=== PATIENT | male | born 1990 | race Two or more races ===

== ENCOUNTER 2016-05-10 12:40 | Emergency (ER) | payer OTHER ==
[~2016-05-10] VITALS: Ht 185.4 cm; Wt 108.9 kg
[~2016-05-10 12:40] MED LIST: CEPHALEXIN500 MG ORAL; IBUPROFEN600 MG ORAL; NORCO 5-325 TA1 EACH ORAL
[2016-05-10] MEDS ORDERED: IBUPROFEN600 MG ORAL (13:42)
[2016-05-10] MEDS ORDERED: AMOXICILLIN500 MG ORAL (13:42)
[2016-05-10 13:47] VITALS: BP 101/77
[2016-05-10 13:49] VITALS: BP 101/77
--- NOTE | 2016-05-10 16:35 | Emergency Room Report ---
History of Present Illness General Chief Complaint: Flu Like Symptoms Source: Patient Present Illness HPI The patient is a 25-year-old male presenting for sore throat and subjective fever for the past 2 days. The patient denies sick contacts or recent travel. The pain is described as a 5/10 sharp sensation it is worse with swallowing. The patient denies any other symptoms including hemoptysis, shortness of breath , chest pain, rash, neck pain or stiffness Allergies: Coded Allergies: No Known Allergies (Unverified , 01/07/16) Patient History Past Medical History: see triage record Pertinent Family History: none Reviewed Nursing Documentation: PMH: Agreed, PSxH: Agreed Nursing Documentation-PMH Past Medical History: No Stated History Review of Systems All Other Systems: negative except mentioned in HPI Physical Exam Vital Signs Date Time Temp Pulse Resp B/P Pulse Ox O2 Delivery O2 Flow Rate FiO2 05/10/16 13:00 98.6 67 20 101/77 100 Room Air Sp02 EP Interpretation: reviewed, normal General Appearance: no apparent distress, alert, GCS 15, non-toxic Head: normocephalic, atraumatic Eyes: bilateral eye PERRL, bilateral eye normal inspection ENT: hearing grossly normal, no angioedema, normal voice, uvula midline, moist mucus membranes, tonsillar swelling, pharyngeal erythema, tonsillar exudate Neck: full range of motion, supple/symm/no masses Respiratory: chest non-tender, lungs clear, normal breath sounds, no wheezing, speaking full sentences Cardiovascular #1: regular rate, rhythm, no edema Musculoskeletal: back normal, gait/station normal, normal range of motion, non- tender Neurologic: alert, oriented x3, responsive, motor strength/tone normal, sensory intact, normal gait, speech normal Psychiatric: judgement/insight normal, memory normal, mood/affect normal, no suicidal/homicidal ideation Skin: normal color, no rash, warm/dry, well hydrated Medical Decision Making PA Attestation Dr. Vila is my supervising physician. Patient management was discussed with my supervising physician Diagnostic Impression: Primary Impression: Pharyngitis, acute ER Course The patient is a 25-year-old male presenting for sore throat and subjective fever for the past 2 days. Differential diagnosis include but not limited to pharyngitis, sinusitis, AOM, bronchitis, PNA Physical exam: Vitals within normal limits. Afebrile. HEENT: There is bilateral tonsillar edema, erythema, with white exudate. Uvula midline. Otherwise exam unremarkable Lungs clear to auscultation bilaterally The patient will be discharged home with prescription for amoxicillin and will follow up with primary care physician. ER precautions are given Last Vital Signs Date Time Temp Pulse Resp B/P Pulse Ox O2 Delivery O2 Flow Rate FiO2 05/10/16 13:49 98.6 67 20 101/77 100 Room Air Status: improved Disposition: HOME, SELF-CARE Condition: Improved Scripts Ibuprofen* (MOTRIN*) 600 Mg Tablet 600 MG ORAL Q8H Y for For Pain, #30 TAB 0 Refills Prov: LESLIE YU 05/10/16 Amoxicillin* (AMOXIL*) 500 Mg Capsule 500 MG ORAL BID, #20 CAP Prov: LESLIE YU 05/10/16 Patient Instructions: Pharyngitis Additional Instructions: I discussed my findings with the patient. All questions and concerns have been answered. Treatment and medication compliance have been addressed. I advised the patient that they need to follow up with PMD in 3-5 days. Return to ED if pain remains or worsens, cough worsens or remains, you notice blood in your sputum, you notice wheezing, you experience a fever, or if needed for any reason. Patient verbalized understanding of discharge instructions. LESLIE YU May 10, 2016 16:35
== END 2016-05-10 13:50 | disposition home or self-care (01) ==
LOC: EMR 13:12
DX: J02.9 Acute pharyngitis, unspecified (principal)
CPT/HCPCS: 99282

== ENCOUNTER 2019-03-21 07:49 | Emergency (ER) | payer MEDICAID, OTHER ==
[~2019-03-21] VITALS: Ht 182.9 cm; Wt 108.9 kg
[~2019-03-21 07:49] MED LIST changes: +AMOXICILLIN500 MG ORAL
[2019-03-21 08:05] VITALS: BP 143/93
--- NOTE | 2019-03-21 08:11 | Emergency Room Report ---
History of Present Illness General Chief Complaint: Abdominal Pain Source: Patient Present Illness HPI Disclaimer: Please note that this report is being documented using [employer] technology. This can lead to erroneous entry secondary to incorrect interpretation by the dictating instrument. HPI: 28-year-old otherwise healthy male presents for evaluation of vomiting and diarrhea. Symptoms began early this morning. He was up late last night eating tacos approximately 2 AM and awoke this morning 6 AM with 4-5 episodes of nonbloody and nonbilious emesis and 2 episodes of profusely watery diarrhea. Denies melena or hematochezia. Denies abdominal pain when not retching. Denies any chest pain, shortness of breath, fever, chills. Does not know whether or not anyone else is sick that was out with him last night. Otherwise no known sick contacts. Takes no medications had no history of abdominal surgeries. PMH: Denies PSH: Denies Allergies: Denies Social Hx: Denies drug, alcohol or tobacco use Allergies: Coded Allergies: No Known Allergies (Unverified , 01/07/16) Nursing Documentation-PMH Past Medical History: No Stated History Review of Systems All Other Systems: negative except mentioned in HPI Physical Exam Vital Signs Date Time Temp Pulse Resp B/P (MAP) Pulse Ox O2 Delivery O2 Flow Rate FiO2 03/21/19 07:51 98.4 81 18 167/85 (112) 99 Room Air General: Awake and alert, no acute distress HEENT: NC/AT. EOMI. moist mucous membranes Cardiovascular: Tachycardic with rate between 101 105. S1 and S2 normal. No murmur appreciated Resp: Normal work of breathing. No cough, wheezing or crackles appreciated Abdomen: Abdomen is soft, nondistended. Abdomen is obese. Nontender, no rebound, negative Elder sign. Small and easily reducible periumbilical hernia palpable. No overlying skin changes or tenderness appreciated Skin: Intact. No abrasions, laceration or rash over the exposed skin MSK: Normal tone and bulk. Moving all extremities. No obvious deformity. Neuro: Awake and alert. Mentating appropriately. Medical Decision Making Diagnostic Impression: Primary Impression: Gastroenteritis Additional Impression: Vomiting and diarrhea ER Course Otherwise healthy 28-year-old male presents for evaluation of sudden onset vomiting and diarrhea after eating tacos late last night. Differential includes was not limited to gastroenteritis, pancreatitis, cholecystitis, appendicitis, foodborne illness, viral syndrome. Overall the patient is well- appearing though does arrive tachycardic. We will start IV fluids, provide antiemetics and ordered labs including LFTs, lipase. Disposition depending on patient improvement and lab results. Laboratory Tests Test 03/21/19 08:22 03/21/19 08:55 White Blood Count 10.5 K/UL (4.8-10.8) Red Blood Count 5.61 M/UL (4.70-6.10) Hemoglobin 16.3 G/DL (14.2-18.0) Hematocrit 49.6 % (42.0-52.0) Mean Corpuscular Volume 88 FL (80-99) Mean Corpuscular Hemoglobin 29.0 PG (27.0-31.0) Mean Corpuscular Hemoglobin Concent 32.8 G/DL (32.0-36.0) Red Cell Distribution Width 11.7 % (11.6-14.8) Platelet Count 269 K/UL (150-450) Mean Platelet Volume 6.6 FL (6.5-10.1) Neutrophils (%) (Auto) 81.2 % (45.0-75.0) H Lymphocytes (%) (Auto) 11.8 % (20.0-45.0) L Monocytes (%) (Auto) 5.8 % (1.0-10.0) Eosinophils (%) (Auto) 0.5 % (0.0-3.0) Basophils (%) (Auto) 0.7 % (0.0-2.0) Sodium Level 140 MMOL/L (136-145) Potassium Level 4.5 MMOL/L (3.5-5.1) Chloride Level 104 MMOL/L (98-107) Carbon Dioxide Level 28 MMOL/L (21-32) Anion Gap 8 mmol/L (5-15) Blood Urea Nitrogen 13 mg/dL (7-18) Creatinine 0.9 MG/DL (0.55-1.30) Estimate Glomerular Filtration Rate > 60 mL/min (>60) Glucose Level 138 MG/DL (74-106) H Calcium Level 9.8 MG/DL (8.5-10.1) Total Bilirubin 0.5 MG/DL (0.2-1.0) Aspartate Amino Transferase (AST) 40 U/L (15-37) H Alanine Aminotransferase (ALT) 97 U/L (12-78) H Alkaline Phosphatase 74 U/L (46-116) Total Protein 8.6 G/DL (6.4-8.2) H Albumin 3.7 G/DL (3.4-5.0) Globulin 4.9 g/dL Albumin/Globulin Ratio 0.8 (1.0-2.7) L Lipase 135 U/L (73-393) Urine Color Pending Urine Appearance Pending Urine pH Pending Urine Specific [place] Pending Urine Protein Pending Urine Glucose (UA) Pending Urine Ketones Pending Urine Blood Pending Urine Nitrite Pending Urine Bilirubin Pending Urine Urobilinogen Pending Urine Leukocyte Esterase Pending Reevaluation Time: 09:33 Last Vital Signs Date Time Temp Pulse Resp B/P (MAP) Pulse Ox O2 Delivery O2 Flow Rate FiO2 03/21/19 07:51 98.4 81 18 167/85 (112) 99 Room Air Reevaluation Impression Labs have returned largely within normal limits. Normal renal function, slight elevation in LFTs but may be due to persistent vomiting. No evidence of pancreatitis. The patient is well-appearing and there were no further episodes of vomiting while in the emergency department. He is receiving IV fluids at this time and will be discharged home once they finish running. We will treat symptomatically with Zofran. He will follow-up with his PMD next week. Discussed reasons to return to the emergency department. He understands and agrees with this treatment plan. Disposition: HOME, SELF-CARE Condition: Stable Scripts Ondansetron Odt* (ZOFRAN ODT*) 4 Mg Tab.rapdis 4 MG BC EVERY 6 HOURS PRN for Nausea & Vomiting, #20 TAB 0 Refills Prov: Juan José Gooden MD 03/21/19 Referrals: NON PHYSICIAN (PCP) Juan José Gooden MD Mar 21, 2019 08:11
[2019-03-21 08:59] LABS: BASOPHILS % (AUTO) 0.7 % (0.0-2.0); EOSINOPHILS % (AUTO) 0.5 % (0.0-3.0); HEMATOCRIT 49.6 % (42.0-52.0); HEMOGLOBIN 16.3 G/DL (14.2-18.0); LYMPHOCYTES % (AUTO) 11.8 % (20.0-45.0); MEAN CORPUSCULAR VOLUME 88 FL (80-99); MONOCYTES % (AUTO) 5.8 % (1.0-10.0); NEUTROPHILS % (AUTO) 81.2 % (45.0-75.0); PLATELET COUNT 269 K/UL (150-450); RED BLOOD COUNT 5.61 M/UL (4.70-6.10); RED CELL DISTRIBUTION WIDTH 11.7 % (11.6-14.8); WHITE BLOOD COUNT 10.5 K/UL (4.8-10.8)
[2019-03-21 09:06] LABS: ANION GAP 8 mmol/L (5-15); BLOOD UREA NITROGEN 13 mg/dL (7-18); CALCIUM 9.8 MG/DL (8.5-10.1); CARBON DIOXIDE 28 MMOL/L (21-32); CHLORIDE 104 MMOL/L (98-107); CREATININE 0.9 MG/DL (0.55-1.30); POTASSIUM 4.5 MMOL/L (3.5-5.1); SODIUM 140 MMOL/L (136-145)
[2019-03-21 09:10] LABS: ALANINE AMINOTRANSFERASE 97 U/L (12-78); ALBUMIN 3.7 G/DL (3.4-5.0); ALBUMIN/GLOBULIN RATIO 0.8 (1.0-2.7); ALKALINE PHOSPHATASE 74 U/L (46-116); ASPARTATE AMINO TRANSFERASE 40 U/L (15-37); BILIRUBIN,TOTAL 0.5 MG/DL (0.2-1.0)
[2019-03-21] MEDS ORDERED: ONDANSETRON ODT4 MG BC (09:18)
[2019-03-21 09:20] VITALS: BP 139/76
[2019-03-21 09:45] VITALS: BP 139/76
[2019-03-21 09:46] LABS: APPEARANCE,URINE CLEAR; BILIRUBIN, URINE NEGATIVE (NEGATIVE); COLOR,URINE PALE YELLOW; GLUCOSE, URINE (UA) NEGATIVE (NEGATIVE); KETONES,URINE NEGATIVE (NEGATIVE); LEUKOCYTE ESTERASE ,URINE NEGATIVE (NEGATIVE); NITRITE,URINE NEGATIVE (NEGATIVE); PH,URINE 8 (4.5-8.0); PROTEIN,URINE 1+ (NEGATIVE); UROBILINOGEN,URINE NORMAL MG/DL (0.0-1.0)
== END 2019-03-21 09:45 | disposition home or self-care (01) ==
LOC: EMR 08:07
DX: K52.9 Noninfective gastroenteritis and colitis, unspecified (principal); R11.10 Vomiting, unspecified; R19.7 Diarrhea, unspecified
CPT/HCPCS: 36415; 80053; 81003; 83690; 85025; 96361; 96374; J2405; J7030; Z7502; 99284